=== PATIENT | female | born 1950 | race Caucasian/White ===

== ENCOUNTER → 2022-05-31 09:05 | Outpatient (CLI) | payer OTHER, SELFPAY | PROVIDERS: PCP Physician Assistant; Referring Provider Surgery; Visit Provider Surgery | DX: R10.9 Unspecified abdominal pain (principal) ==

== ENCOUNTER → 2022-06-15 11:08 | Outpatient (CLI) | payer OTHER, SELFPAY ==
--- NOTE | 2022-06-15 11:09 | DI.US.S_ITS ---
PROCEDURE: US ABDOMEN COMPLETE INDICATIONS: Gallstones TECHNIQUE: Real-time scanning was performed of the abdominal and retroperitoneal organs, with image documentation. COMPARISON: None. FINDINGS: Liver: Liver is normal in size and homogeneous in echotexture. Multiple benign-appearing anechoic cysts are seen, the largest cyst located in the right hepatic lobe measures 4.2 x 4.7 x 4 cm. Gallbladder: Multiple small echogenic shadowing stones are seen in the dependent portion of the gallbladder. No gallbladder wall thickening or pericholecystic fluid. Sonographic Gloria sign is negative. Biliary ducts: Intrahepatic bile ducts are non-dilated. Extrahepatic bile duct caliber measures 5.5 mm. Normal is 6-7 mm or less in diameter, or 10 mm or less post-cholecystectomy. Pancreas: Visualized portions of the pancreas are sonographically normal. Spleen: Spleen is normal in size and homogeneous in echotexture. Kidneys: Kidneys are normal in size and echotexture. Right kidney measures 9.2 cm long; left kidney measures 9.8 cm long. No hydronephrosis or nephrolithiasis. No solid masses. Cortical thinning is seen at the superior pole of the right kidney that is most likely chronic scarring related to a prior insult. Aorta: Visualized aorta is normal in caliber at less than 3 cm. Iliacs: Proximal common iliac arteries are normal in caliber at less than 2.5 cm. IVC: Intrahepatic inferior vena cava is patent. Miscellaneous: No free abdominal fluid. IMPRESSION: 1. Cholelithiasis without signs of acute cholecystitis. 2. Multiple benign-appearing up attic cysts. 3. Chronic right renal cortical scarring. No hydronephrosis. Approved by: Cortez Irvin M.D. on 06/15/2022 at 12:02
== END ==
PROVIDERS: PCP Physician Assistant; Referring Provider Surgery; Visit Provider Surgery
DX: K21.9 Gastro-esophageal reflux disease without esophagitis (principal); K76.89 Other specified diseases of liver
CPT/HCPCS: 76700

== ENCOUNTER → 2022-06-22 10:52 | Outpatient (CLI) | payer OTHER, SELFPAY ==
[2022-06-22 12:44] LABS: COVID19 -Nasal RAPID Negative (Negative)
== END ==
PROVIDERS: PCP Physician Assistant; Visit Provider Surgery
DX: Z01.812 Encounter for preprocedural laboratory examination (principal); Z20.822 Contact with and (suspected) exposure to COVID-19
CPT/HCPCS: 87635; C9803

== ENCOUNTER 2022-06-23 12:39 | Day surgery (SDC) | payer OTHER, SELFPAY ==
--- NOTE | 2022-06-23 | PATH_ITS ---
[facility] Accession Number: [id number] . 01 Material submitted: . PART A: duodenum - DUODENUM BIOPSY PART B: gastrointestinal site - ANTRUM BIOPSY PART C: gastrointestinal site - GASTRIC ULCER BIOPSY . 01 Diagnosis: A. Duodenum, Biopsy: Small bowel mucosa with no diagnostic abnormality. Negative for active inflammation, dysplasia, and malignancy. . B. Antrum, Biopsy: Portions of gastric antral mucosa with mild chronic inflammation. Negative for Helicobacter organisms by immunohistochemistry. Negative for intestinal metaplasia. Negative for dysplasia or malignancy. Scant fragments of small bowel mucosa with no significant histomorphologic abnormality. . C. Gastric Ulcer Biopsy: Portions of gastric antral mucosa with chronic active gastritis and detached fragments of ulcer bed. Negative for Helicobacter organisms by immunohistochemistry. Negative for intestinal metaplasia. Negative for dysplasia or malignancy. [facility] 07/04/2022 0922 Local . 01 Electronically signed: . Maria C Rueda MD, Pathologist NPI- [id number] . 01 Gross description: . Part A: DUODENUM BIOPSY: Received in formalin is 1 fragment(s) of torres, soft tissue measuring 0.3 x 0.3 x 0.3 cm submitted entirely in 1 cassette(s) Part B: ANTRUM BIOPSY: Received in formalin are 4 fragment(s) of torres, soft tissue measuring 0.1 x 0.1 x 0.1 cm to 0.3 x 0.3 x 0.2 cm submitted entirely in 1 cassette(s) Part C: GASTRIC ULCER BIOPSY: Received in formalin are 2 fragment(s) of torres, soft tissue measuring 0.1 x 0.1 x 0.1 cm to 0.2 x 0.2 x 0.2 cm submitted entirely in 1 cassette(s) /YOEL 06/27/2022 2232 Local . 01 Microscopic: . B. An immunohistochemical stain was performed to evaluate for Helicobacter organisms and is negative. The control stain showed appropriate reactivity. . C. An immunohistochemical stain was performed to evaluate for Helicobacter organisms and is negative. The control stain showed appropriate reactivity. . * This test was developed and its performance characteristics determined by [facility]. It has not been cleared or approved by the U.S. Food and Drug Administration. The FDA has determined that such clearance or approval is not necessary. This test is used for clinical purposes. It should not be regarded as investigational or for research. . 01 Pathologist provided ICD-10: K29.70, R10.0 . 01 CPT . F04935, K67592, V89978, N03332 Specimen Comment: A courtesy copy of this report has been sent to [phone] Performed at: 01 [facility] [address] [place] [address], [place], [place] [id number] MD Wes Nguyen MD Phone: [phone]
[2022-06-23 13:19] VITALS: BP 145/76; PULSE 72; RESP 14; TEMP 36.6; O2SAT 99; BMI 23.6
[2022-06-23] MEDS: LACTATED RINGERS 1,000 ML 84 ML IV (13:32)
--- NOTE | 2022-06-23 14:06 | PM.HP.1 ---
History of Present Illness History of Present Illness Date Patient Seen: 06/23/22 Time Patient Seen: 14:06 Chief complaint: EGD Narrative: Darian is for her EGD. Please see the recent office note for details. She did have her ultrasound recently which did show gallstones but no cholecystitis. 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 Hyperlipemia Hypothyroid Insomnia MDD (major depressive disorder) Morphea scleroderma Osteopenia Venous insufficiency Surgical History (Updated 05/18/22 @ 11:00 by Liu Reece RN) S/P lumbar laminectomy Family & Social History Family History (Updated 05/18/22 @ 13:43 by Liu Reece RN) Mother Hypertension Stroke Social History: household members none lives independently Yes Tobacco & Substance use: Smoking Status Former smoker alcohol intake current alcohol intake frequency 0-2 drinks per day Substance Use Type does not use Meds Home Medications and Allergies Home Medications Medication Instructions Recorded Confirmed Type acetaminophen 500 mg capsule 500 mg PO BID 05/18/22 06/23/22 History buspirone 30 mg tablet 30 mg PO BID 05/18/22 06/23/22 History d-mannose 500 mg capsule mg PO 05/18/22 05/18/22 History duloxetine 60 mg capsule,delayed 60 mg PO BID 05/18/22 05/18/22 History release famotidine 20 mg tablet 20 mg PO BID 05/18/22 06/23/22 History gabapentin 100 mg capsule 100 mg PO TID 05/18/22 06/23/22 History levothyroxine 75 mcg capsule 75 mcg PO DAILY 05/18/22 06/23/22 History liothyronine 5 mcg tablet 5 mcg PO DAILY 05/18/22 06/23/22 History losartan 50 mg tablet 50 mg PO DAILY 05/18/22 06/23/22 History magnesium citrate 100 mg capsule 100 mg PO DAILY 05/18/22 06/23/22 History mecobalamin (vitamin B12) 1,000 1,000 mcg PO DAILY 05/18/22 06/23/22 History mcg chewable tablet meloxicam 15 mg tablet 15 mg PO DAILY 05/18/22 06/23/22 History omeprazole 20 mg capsule,delayed 20 mg PO DAILY 05/18/22 06/23/22 History release potassium 99 mg tablet 99 mg PO DAILY 05/18/22 06/23/22 History propranolol 10 mg tablet 10 mg PO BID 05/18/22 06/23/22 History tiotropium bromide 2.5 2 puff inhalation DAILY 05/18/22 06/23/22 History mcg/actuation mist for inhalation trazodone 50 mg tablet 50 mg PO BEDTIME PRN Sleep 05/18/22 06/23/22 History Allergies Allergy/AdvReac Type Severity Reaction Status Date / Time Penicillins Allergy Verified 06/23/22 13:33 tetracycline Allergy Verified 06/23/22 13:33 melatonin AdvReac Verified 06/23/22 13:33 prochlorperazine AdvReac Verified 06/23/22 13:33 [From Compazine] sorbitol AdvReac Verified 06/23/22 13:33 xylitol AdvReac Verified 06/23/22 13:33 Exam Vital Signs (past 8 hours): - 06/23/22 13:19 Temperature 98 F Pulse Rate 72 Respiratory Rate 14 Blood Pressure 145/76 H Pulse Oximetry 99 Oxygen Delivery Method Room Air Oxygen Delivery Method Room Air Const General: healthy appearing Assessment & Plan Assessment and plan (1) Gastroesophageal reflux disease without esophagitis: Status: Acute Plan We reviewed the risks and benefits of EGD and like to proceed Time Spent With Patient Critical Care time: I spent a total of [] minutes of critical care time on this patient's care today; this time is exclusive of procedural time.
--- NOTE | 2022-06-23 14:25 | PM.OP.EGD ---
Operative Date/Time/Diagnoses Date of procedure: 06/23/22 Time of procedure: 14:27 Pre-op diagnosis: Dyspepsia Post-op diagnosis: same Procedure & Clinicians Study performed: Esophagogastroduodenoscopy Same procedure as scheduled: Yes Surgeon: Porter Nascimento Procedure Notes Procedure in detail: Surgeon: Porter Nascimento MD Anesthesia: Dr. Prabhakar A timeout was performed. A bite blocked was placed. The patient was positioned in the left lateral decubitus position. Anesthesia was administered. The endoscope was inserted through the bite block and passed through the esophagus and stomach and into the duodenum. The duodenal mucosa appeared normal. Random biopsies were taken to rule out celiac disease. The scope was withdrawn into the duodenal bulb and no abnormalities were seen. The scope was withdrawn into the stomach. There was some mild antritis and there was a moderately-sized antral ulcer which was not bleeding. There was also evidence of recently healed ulcers in the antrum. The rest of the stomach was normal. The scope was retroflexed and no abnormalities were noted. The scope was withdrawn into the esophagus and no abnormalities were noted. The scope was withdrawn. The patient was awakened and brought to recovery. Sedation time: 10 minutes Findings: Mild antritis and an antral ulcer Post-procedure Recommendations: Will call with biopsy results Disposition: PACU
[2022-06-23 14:27] VITALS: BP 123/66; PULSE 69; TEMP 36.4; O2SAT 98
[2022-06-23 14:32] VITALS: BP 126/74; PULSE 71; RESP 17; O2SAT 99
[2022-06-23 14:37] VITALS: BP 117/49; PULSE 79; RESP 23; O2SAT 96
[2022-06-23 14:42] VITALS: BP 112/54; PULSE 67; RESP 16; O2SAT 100
[2022-06-23 14:47] VITALS: BP 134/64; PULSE 72; RESP 18; TEMP 36; O2SAT 99
== END 2022-06-23 15:15 | disposition home or self-care (01) ==
PROVIDERS: PCP Physician Assistant; Referring Provider Surgery; Visit Provider Surgery
PROC: 0DJ08ZZ Inspection of Upper Intestinal Tract, Via Natural or Artificial Opening Endoscopic (ICD-10-PCS; CPT 43235; principal; 2022-06-23 13:45)
DX: K29.50 Unspecified chronic gastritis without bleeding (principal); N18.9 Chronic kidney disease, unspecified; F41.9 Anxiety disorder, unspecified; E06.3 Autoimmune thyroiditis; K25.9 Gastric ulcer, unspecified as acute or chronic, without hemorrhage or perforation
CPT/HCPCS: 43239; J2704; J3010

== ENCOUNTER 2024-06-19 13:16 | Emergency (ER) | payer OTHER, SELFPAY ==
[2024-06-19 13:54] VITALS: BP 139/90; PULSE 83; RESP 17; TEMP 36.6; O2SAT 98; BMI 23.8
--- NOTE | 2024-06-19 16:14 | PC.NURSE ---
Pt reports hx of thoracic surgery with removal of a tumor. Reports this pain feels similar. Provider Arely made aware.
--- NOTE | 2024-06-19 16:15 | ED_ITS ---
HPI - Back Pain/Injury <Arely Morton PA-C - Last Filed: 06/19/24 20:45> General Chief Complaint: Back Pain/Injury Stated Complaint: pain in back getting worse Time Seen by Provider: 06/19/24 16:15 Source: patient History of Present Illness HPI Narrative: Ms. Coles is a very pleasant 73-year-old female with a past medical history of breast cancer s/p mastectomy with left rectus abdominis reconstruction, Mark Anthony's thyroiditis, essential tremor, anxiety, depression, hypertension, who presents to the emergency department for left flank pain x 6 days. Patient reports on Monday she woke up with pain on the left side/flank. She denies any inciting injury. States the pain feels similar to when she had a benign thoracic tumor (that was removed many years ago). Pain is worsened by movement. It is constant. She denies chest pain, shortness of breath, cough, fevers, chills, abdominal pain, nausea, vomiting, dysuria, hematuria. Related Data Home Medications Medication Instructions Recorded Confirmed acetaminophen 500 mg capsule 500 mg PO BID 05/18/22 07/06/22 buspirone 30 mg tablet 30 mg PO BID 05/18/22 07/06/22 d-mannose 500 mg capsule mg PO 05/18/22 07/06/22 duloxetine 60 mg capsule,delayed 60 mg PO BID 05/18/22 07/06/22 release famotidine 20 mg tablet 20 mg PO BID 05/18/22 07/06/22 gabapentin 100 mg capsule 100 mg PO TID 05/18/22 07/06/22 levothyroxine 75 mcg capsule 75 mcg PO DAILY 05/18/22 07/06/22 liothyronine 5 mcg tablet 5 mcg PO DAILY 05/18/22 07/06/22 losartan 50 mg tablet 50 mg PO DAILY 05/18/22 07/06/22 magnesium citrate 100 mg capsule 100 mg PO DAILY 05/18/22 07/06/22 mecobalamin (vitamin B12) 1,000 1,000 mcg PO DAILY 05/18/22 07/06/22 mcg chewable tablet meloxicam 15 mg tablet 15 mg PO DAILY 05/18/22 07/06/22 omeprazole 20 mg capsule,delayed 20 mg PO DAILY 05/18/22 07/06/22 release potassium 99 mg tablet 99 mg PO DAILY 05/18/22 07/06/22 propranolol 10 mg tablet 10 mg PO BID 05/18/22 07/06/22 tiotropium bromide 2.5 2 puff inhalation DAILY 05/18/22 07/06/22 mcg/actuation mist for inhalation trazodone 50 mg tablet 50 mg PO BEDTIME PRN Sleep 05/18/22 07/06/22 Allergies Allergy/AdvReac Type Severity Reaction Status Date / Time Penicillins Allergy Verified 06/19/24 13:57 tetracycline Allergy Verified 06/19/24 13:57 melatonin AdvReac Verified 06/19/24 13:57 prochlorperazine AdvReac Verified 06/19/24 13:57 [From Compazine] sorbitol AdvReac Verified 06/19/24 13:57 xylitol AdvReac Verified 06/19/24 13:57 Review of Systems <Arely Morton PA-C - Last Filed: 06/19/24 20:45> Review of Systems ROS Unobtainable: All systems reviewed & are unremarkable except as noted in HPI and below Patient History <Arely Morton PA-C - Last Filed: 06/19/24 20:45> Medical History Venous insufficiency Chronic kidney disease (CKD) Insomnia Osteopenia Morphea scleroderma MDD (major depressive disorder) Hypothyroid Hyperlipemia History of benign pleural tumor Mark Anthony's disease Generalized anxiety disorder Surgical History S/P lumbar laminectomy Family History Mother Hypertension Stroke Social History number of children: 1 household members: none lives independently: Yes pets and animals: Yes Smoking Status: Former smoker alcohol intake: current Smoking Status: Former smoker alcohol intake frequency: 0-2 drinks per day Substance Use Type: does not use Exam <Arely Morton PA-C - Last Filed: 06/19/24 20:45> Narrative Exam Narrative: GENERAL: 73 year old patient appears stated age. Well-developed patient, in no acute distress. Mild tremor. HEAD: Atraumatic. Normocephalic. EYES: Extraocular motions intact.No injection or drainage. ENT: Nose without bleeding, purulent drainage. Airway patent. NECK: Trachea midline. CARDIOVASCULAR: Regular rate and rhythm. RESPIRATORY: Clear to auscultation. Breath sounds equal bilaterally. No wheezes, rales, or rhonchi. GASTROINTESTINAL: Abdomen soft, non-tender, nondistended. EXTREMITIES: No edema or joint tenderness. BACK: Nontender without deformity or crepitance. Negative SLR bilaterally. NEURO: AOx3. Steady gait. SKIN: Mild horizontal 10cm linear erythema on L flank above waistband of pants. Initial Vital Signs Initial Vital Signs: Vital Signs Temperature 98 F 06/19/24 13:54 Pulse Rate 83 06/19/24 13:54 Respiratory Rate 17 06/19/24 13:54 Blood Pressure 139/90 06/19/24 13:54 Pulse Oximetry 98 06/19/24 13:54 Oxygen Delivery Method Room Air 06/19/24 13:54 <Enrique Danielson DO - Last Filed: 06/19/24 21:08> Initial Vital Signs Initial Vital Signs: Vital Signs Temperature 98 F 06/19/24 13:54 Pulse Rate 83 06/19/24 13:54 Respiratory Rate 17 06/19/24 13:54 Blood Pressure 139/90 06/19/24 13:54 Pulse Oximetry 98 06/19/24 13:54 Oxygen Delivery Method Room Air 06/19/24 13:54 Course <Arely Morton PA-C - Last Filed: 06/19/24 20:45> Orders Ordered: ED Orders 06/19/24 16:34 CT chest abd pel w con Stat 06/19/24 16:50 CBC Auto Diff [Complete Blood Count AUTO DIFF] Stat CMP [Comprehensive Metabolic Panel] Stat Lipase Stat 06/19/24 17:41 Urine Microscopic Stat Discontinued Medications Acetaminophen (Acetaminophen 325 Mg Tablet) 975 mg PO NOW ONE Stop: 06/19/24 16:35 Last Admin: 06/19/24 16:57 Dose: 975 mg Documented By: RAUL Hydrocodone Bitart/Acetaminophen (Hydrocodone/Acet 5/325 Prepack) 1 bottle MISC DIRECTED ONE Stop: 06/19/24 20:31 Last Admin: 06/19/24 20:47 Dose: 1 bottle Documented By: KLAUS Ibuprofen (Ibuprofen 400 Mg Tablet) 400 mg PO NOW ONE Stop: 06/19/24 20:31 Last Admin: 06/19/24 20:48 Dose: 400 mg Documented By: KLAUS Vital Signs Vital signs: Vital Signs - 8 hr 06/19/24 13:54 06/19/24 20:12 06/19/24 20:51 Temperature 98 F Pulse Rate 83 74 71 Respiratory Rate 17 20 16 Blood Pressure 139/90 173/83 H 169/88 H Pulse Oximetry 98 99 99 Oxygen Delivery Method Room Air Room Air Room Air <Enrique Danielson DO - Last Filed: 06/19/24 21:08> Orders Ordered: ED Orders 06/19/24 16:34 CT chest abd pel w con Stat 06/19/24 16:50 CBC Auto Diff [Complete Blood Count AUTO DIFF] Stat CMP [Comprehensive Metabolic Panel] Stat Lipase Stat 06/19/24 17:41 Urine Microscopic Stat Discontinued Medications Acetaminophen (Acetaminophen 325 Mg Tablet) 975 mg PO NOW ONE Stop: 06/19/24 16:35 Last Admin: 06/19/24 16:57 Dose: 975 mg Documented By: RAUL Hydrocodone Bitart/Acetaminophen (Hydrocodone/Acet 5/325 Prepack) 1 bottle MISC DIRECTED ONE Stop: 06/19/24 20:31 Last Admin: 06/19/24 20:47 Dose: 1 bottle Documented By: KLAUS Ibuprofen (Ibuprofen 400 Mg Tablet) 400 mg PO NOW ONE Stop: 06/19/24 20:31 Last Admin: 06/19/24 20:48 Dose: 400 mg Documented By: KLAUS Vital Signs Vital signs: Vital Signs - 8 hr 06/19/24 13:54 06/19/24 20:12 06/19/24 20:51 Temperature 98 F Pulse Rate 83 74 71 Respiratory Rate 17 20 16 Blood Pressure 139/90 173/83 H 169/88 H Pulse Oximetry 98 99 99 Oxygen Delivery Method Room Air Room Air Room Air MDM - Back Pain/Injury <Arely Morton PA-C - Last Filed: 06/19/24 20:45> Lab Data 06/19/24 16:50 06/19/24 16:50 Labs: Lab Results 06/19/24 06/19/24 Range/Units 16:50 17:41 WBC 6.8 (4.5-11.0) X10^3/uL RBC 4.16 (4.0-5.2) X10^6/uL Hgb 12.9 (12.0-16.0) g/dL Hct 37.7 (36-46) % MCV 90.8 (80-100) fL MCH 31.1 (26-34) PG MCHC 34.2 (30-36) % RDW 12.8 (11.6-14.8) % Plt Count 324 (150-400) X10^3/uL Neut % (Auto) 68.6 (50-75) % Lymph % (Auto) 23.6 L (25-40) % [place] % (Auto) 6.6 (3-14) % Eos % (Auto) 0.7 L (2-4) % Baso % (Auto) 0.5 (0-2) % Neut # (Auto) 4700 (8743-6138) /uL Lymph # (Auto) 1600 (6920-8202) /uL [place] # (Auto) 500 (0-900) /uL Eos # (Auto) 0 (0-450) /uL Baso # (Auto) 0 (0-100) /uL Sodium 135 L (137-145) mmol/L Potassium 4.1 (3.4-5.1) mmol/L Chloride 101 (98-107) mmol/L Carbon Dioxide 27 (22-32) mmol/L BUN 14 (7-17) mg/dL Creatinine 0.87 (0.52-1.04) mg/dL Estimated GFR > 60 (>60) mL/min BUN/Creatinine Ratio 16.1 (6-22) Glucose 92 (80-110) mg/dL Calcium 9.9 (8.4-10.2) mg/dL Total Bilirubin 0.9 (0.2-1.3) mg/dL AST 30 (14-36) IU/L ALT 17 (<35) IU/L Alkaline Phosphatase 74 (38-126) U/L Total Protein 7.6 (6.3-8.2) g/dL Albumin 4.7 (3.5-5.0) g/dL Globulin 2.9 (1.7-4.1) g/dL Albumin/Globulin Ratio 1.6 (1.0-2.8) Lipase 193 (23-300) U/L Urine RBC None seen (0-5/HPF) Urine WBC 1-5/hpf (0-5/HPF) Ur Squamous Epith Cells None seen (0-5/HPF) Urine Bacteria Occasional (0-1) (None) Ur Culture Indicated? Cult not indicated Vol Urine Centrifuged 10ml (spun) Urine Dip Bedside Urine Glucose Negative Bedside Urine Bilirubin - Negative Bedside Urine Ketone +/- 5 Urine Specific [place] 1.005 Bedside Urine Occult Blood - Negative Bedside Urine pH 6.5 Bedside Urine Protein - Negative Bedside Urine Urobilinogen - Negative Bedside Urine Nitrite - Negative Bedside Urine Leukocytes +/- [address] chest / abd / pelvis: Radiologist's Impression: FINDINGS: Image quality: Excellent. CHEST: Lungs and Pleura: Central and peripheral airways are normal without bronchial wall thickening or bronchiectasis. Mild emphysematous changes, predominantly centrilobular in the upper lobes. No ground-glass opacities, consolidations, or suspicious nodules. No pleural effusions. Left posterior pleural calcification. Surgical changes of left lower lobectomy. Lower Neck: No enlarged lymph nodes. Thyroid: Normal CT appearance. Axillae: No enlarged lymph nodes. Chest Wall: Status post right mastectomy. Surgical changes along the left anterior chest wall with fat stranding in the overlying breast tissue. Most likely due to mastectomy and reconstruction. Bones: Remote, healed left-sided rib fractures, probably postsurgical. No suspicious lesions in the thoracic spine. Heart: Heart size is normal. No pericardial effusion. Thoracic Vessels: The aorta and pulmonary arteries demonstrate normal size. Mediastinum and Dilma: No enlarged lymph nodes. Esophagus: No wall thickening. No hiatal hernia. ABDOMEN: Liver: Several cysts of varying sizes in the liver, one of the largest at the dome measures 5 cm. No solid mass. Gallbladder: Distended gallbladder without wall thickening or pericholecystic inflammation. No calcified stones seen. Biliary ducts: No biliary dilation. Pancreas: Mildly dilated proximal pancreatic duct. No suspicious pancreatic mass or peripancreatic inflammation. Spleen: Size is within normal limits. Adrenal Glands: No adrenal nodules. Kidneys and Ureters: Right upper pole cortical scarring or postsurgical change. Symmetric enhancement. No nephrolithiasis or hydronephrosis. Normal ureters. Stomach and Bowel: Increased quantity of solid stool in the colon. Stomach and small bowel loops are normal caliber. Peritoneum: No abnormal intraperitoneal fluid. No free air. Ventral Wall: Scattered surgical changes of probable tram flap. Abdominal Nodes: No retroperitoneal or mesenteric adenopathy by size criteria. Vessels: The abdominal aorta, IVC, and portal vein are of normal caliber. PELVIS: Pelvic Organs: Anteverted uterus. Solid left ovarian mass within the left ovary measuring 2.6 cm. Right ovary appears normal. Bladder: No stones or wall thickening. Pelvic Nodes: No enlarged lymph nodes. Miscellaneous: No inguinal hernias are seen. Bones: Prominent degenerative changes in the lumbar spine and moderate levoscoliosis. No suspicious bone lesions or fractures. IMPRESSION: No acute process in the chest. Mild obstipation in the colon. Solid left ovarian mass, uncertain etiology. There is no ascites or associated inflammation. Recommend pelvic MRI with contrast as an outpatient for further evaluation. Lumbar spine degeneration and scoliosis. [facility] Narrative Medical decision making narrative: 73 year old female presents to the emergency department for left side/flank pain x6 days. Differential diagnosis includes but is not limited to muscle strain, muscle spasm, pyelonephritis, nephrolithiasis, ureterolithiasis, mass, shingles, renal colic, etc. On physical exam patient is in no acute distress, nontoxic appearing, vital signs within normal limits. She has subjective pain on her left side that is worse with movement but not reproducible by palpation. She is very minimal erythema overlying this area. Due to her extensive history of abdominal surgeries and similar pain in the past with thoracic mass, we will proceed with a CT chest abdomen pelvis and CBC and CMP. We will obtain urinalysis. Urinalysis negative. Labs reveal normal WBC count 6.8, normal hemoglobin and hematocrit 12.9, 37.7. Normal renal function. Lipase normal 193. CT chest abdomen and pelvis reveals a 2.6 cm left ovarian mass in addition to mild obstipation in the colon. She also has lumbar spine degeneration and scoliosis. On repeat examination of patient, erythematous kamron on her left flank did resolve. CT result was printed and entire report was discussed with patient including all incidental findings such as hepatic cysts. Patient is aware that she needs to have a follow-up MRI of her pelvis for further evaluation of ovarian mass. This mass is on the side of the patient's pain however she also has pain with movement suspicious for musculoskeletal pain as well. Recommended alternating ibuprofen and Tylenol as patient did have slight improvement of pain with Tylenol in the ED. she was prescribed for doses of hydrocodone-acetaminophen if needed for severe breakthrough pain. Patient was advised to follow up with her primary care doctor as soon as possible for further evaluation and pelvis MRI. We discussed strict ED return precautions and she understands to return for any new, worsening or persistent symptoms. Patient is agreeable to plan and stable for discharge home. <Enrique Danielson, DO - Last Filed: 06/19/24 21:08> Lab Data Labs: Lab Results 06/19/24 06/19/24 Range/Units 16:50 17:41 WBC 6.8 (4.5-11.0) X10^3/uL RBC 4.16 (4.0-5.2) X10^6/uL Hgb 12.9 (12.0-16.0) g/dL Hct 37.7 (36-46) % MCV 90.8 (80-100) fL MCH 31.1 (26-34) PG MCHC 34.2 (30-36) % RDW 12.8 (11.6-14.8) % Plt Count 324 (150-400) X10^3/uL Neut % (Auto) 68.6 (50-75) % Lymph % (Auto) 23.6 L (25-40) % [place] % (Auto) 6.6 (3-14) % Eos % (Auto) 0.7 L (2-4) % Baso % (Auto) 0.5 (0-2) % Neut # (Auto) 4700 (1927-5676) /uL Lymph # (Auto) 1600 (2073-4374) /uL [place] # (Auto) 500 (0-900) /uL Eos # (Auto) 0 (0-450) /uL Baso # (Auto) 0 (0-100) /uL Sodium 135 L (137-145) mmol/L Potassium 4.1 (3.4-5.1) mmol/L Chloride 101 (98-107) mmol/L Carbon Dioxide 27 (22-32) mmol/L BUN 14 (7-17) mg/dL Creatinine 0.87 (0.52-1.04) mg/dL Estimated GFR > 60 (>60) mL/min BUN/Creatinine Ratio 16.1 (6-22) Glucose 92 (80-110) mg/dL Calcium 9.9 (8.4-10.2) mg/dL Total Bilirubin 0.9 (0.2-1.3) mg/dL AST 30 (14-36) IU/L ALT 17 (<35) IU/L Alkaline Phosphatase 74 (38-126) U/L Total Protein 7.6 (6.3-8.2) g/dL Albumin 4.7 (3.5-5.0) g/dL Globulin 2.9 (1.7-4.1) g/dL Albumin/Globulin Ratio 1.6 (1.0-2.8) Lipase 193 (23-300) U/L Urine RBC None seen (0-5/HPF) Urine WBC 1-5/hpf (0-5/HPF) Ur Squamous Epith Cells None seen (0-5/HPF) Urine Bacteria Occasional (0-1) (None) Ur Culture Indicated? Cult not indicated Vol Urine Centrifuged 10ml (spun) Urine Dip Bedside Urine Glucose Negative Bedside Urine Bilirubin - Negative Bedside Urine Ketone +/- 5 Urine Specific [place] 1.005 Bedside Urine Occult Blood - Negative Bedside Urine pH 6.5 Bedside Urine Protein - Negative Bedside Urine Urobilinogen - Negative Bedside Urine Nitrite - Negative Bedside Urine Leukocytes +/- 15 Esterase Discharge Plan Departure Patient Disposition: Home Clinical Impression: Acute left flank pain, Ovarian mass, left Instructions: DI for Back Spasm Activity Restrictions/Additional Instructions: Please take 400mg of ibuprofen every 6-8 hours alternating with 650mg of tylenol every 6-8 hours as needed for pain. You may take the prescribed hydrocodone- acetaminophen 5mg-325mg every 6-8 hours if needed for severe breakthrough pain. Please call your primary care doctor first thing in the morning to schedule a follow up appointment and to order a pelvic MRI for further evaluation. Return to the emergency department if you develop any chest pain, shortness of breath, fevers, chills, rash, new or worsening left flank pain. You have been prescribed a short course of narcotic medications. These are potentially dangerous and addictive medications that should be used carefully. While on these medications you cannot drive or operate heavy machinery. Additionally, you cannot sign legal documents or perform any duties such as this. 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 Please understand that we cannot provide further refills of narcotics or controlled substances through the ED and your pain management will need to be through your Primary Care Provider Prescriptions: No Action famotidine 20 mg tablet 20 mg PO BID losartan 50 mg tablet 50 mg PO DAILY trazodone 50 mg tablet 50 mg PO BEDTIME PRN (Reason: Sleep) magnesium citrate 100 mg capsule 100 mg PO DAILY mecobalamin (vitamin B12) 1,000 mcg tablet,chewable 1,000 mcg PO DAILY potassium 99 mg tablet 99 mg PO DAILY d-mannose 500 mg capsule PO duloxetine 60 mg capsule,delayed release(DR/EC) 60 mg PO BID buspirone 30 mg tablet 30 mg PO BID gabapentin 100 mg capsule 100 mg PO TID acetaminophen 500 mg capsule 500 mg PO BID levothyroxine 75 mcg capsule 75 mcg PO DAILY tiotropium bromide 2.5 mcg/actuation mist 2 puff inhalation DAILY liothyronine 5 mcg tablet 5 mcg PO DAILY propranolol 10 mg tablet 10 mg PO BID meloxicam 15 mg tablet 15 mg PO DAILY omeprazole 20 mg capsule,delayed release(DR/EC) 20 mg PO DAILY Referrals: Henry Uriarte, PAOttonielC [Primary Care Provider] - Stand Alone Forms: Patient Portal/API/Survey ED Sign-out <Enrique Danielson DO - Last Filed: 06/19/24 21:08> Cosign ED Attending Cosignature Attestation: Dr Danielson Co-Sign Statement: I was available for consultation during this patient's emergency department visit. This chart is signed by myself for administrative purposes only. I did not have direct contact with this patient during this visit. They were seen independently by the APC.
--- NOTE | 2024-06-19 16:34 | DI.CT.S_ITS ---
PROCEDURE: CT CHEST ABD PEL W CON INDICATIONS: left flank pain ; hx various reconstructive surgeries TECHNIQUE: After the administration of intravenous contrast, 5 mm thick sections acquired from the lung apices to the symphysis. 5 mm coronal and sagittal reformats were performed, with additional 7 mm MIP reformats through the lungs. For radiation dose reduction, the following was used: automated exposure control, adjustment of mA and/or kV according to patient size. COMPARISON: None. FINDINGS: Image quality: Excellent. CHEST: Lungs and Pleura: Central and peripheral airways are normal without bronchial wall thickening or bronchiectasis. Mild emphysematous changes, predominantly centrilobular in the upper lobes. No ground-glass opacities, consolidations, or suspicious nodules. No pleural effusions. Left posterior pleural calcification. Surgical changes of left lower lobectomy. Lower Neck: No enlarged lymph nodes. Thyroid: Normal CT appearance. Axillae: No enlarged lymph nodes. Chest Wall: Status post right mastectomy. Surgical changes along the left anterior chest wall with fat stranding in the overlying breast tissue. Most likely due to mastectomy and reconstruction. Bones: Remote, healed left-sided rib fractures, probably postsurgical. No suspicious lesions in the thoracic spine. Heart: Heart size is normal. No pericardial effusion. Thoracic Vessels: The aorta and pulmonary arteries demonstrate normal size. Mediastinum and Dilma: No enlarged lymph nodes. Esophagus: No wall thickening. No hiatal hernia. ABDOMEN: Liver: Several cysts of varying sizes in the liver, one of the largest at the dome measures 5 cm. No solid mass. Gallbladder: Distended gallbladder without wall thickening or pericholecystic inflammation. No calcified stones seen. Biliary ducts: No biliary dilation. Pancreas: Mildly dilated proximal pancreatic duct. No suspicious pancreatic mass or peripancreatic inflammation. Spleen: Size is within normal limits. Adrenal Glands: No adrenal nodules. Kidneys and Ureters: Right upper pole cortical scarring or postsurgical change. Symmetric enhancement. No nephrolithiasis or hydronephrosis. Normal ureters. Stomach and Bowel: Increased quantity of solid stool in the colon. Stomach and small bowel loops are normal caliber. Peritoneum: No abnormal intraperitoneal fluid. No free air. Ventral Wall: Scattered surgical changes of probable tram flap. Abdominal Nodes: No retroperitoneal or mesenteric adenopathy by size criteria. Vessels: The abdominal aorta, IVC, and portal vein are of normal caliber. PELVIS: Pelvic Organs: Anteverted uterus. Solid left ovarian mass within the left ovary measuring 2.6 cm. Right ovary appears normal. Bladder: No stones or wall thickening. Pelvic Nodes: No enlarged lymph nodes. Miscellaneous: No inguinal hernias are seen. Bones: Prominent degenerative changes in the lumbar spine and moderate levoscoliosis. No suspicious bone lesions or fractures. IMPRESSION: No acute process in the chest. Mild obstipation in the colon. Solid left ovarian mass, uncertain etiology. There is no ascites or associated inflammation. Recommend pelvic MRI with contrast as an outpatient for further evaluation. Lumbar spine degeneration and scoliosis. Dictated by: Brianda Del Castillo M.D. on 06/19/2024 at 19:32 Approved by: Brianda Del Castillo M.D. on 06/19/2024 at 19:43
[2024-06-19] MEDS: ACETAMINOPHEN 325 MG TABLET 975 MG PO (16:57)
[2024-06-19 17:03] LABS: Add Manual Diff / Slide Review NO; Basophils Absolute Auto 0 /uL (0-100); Basophils Percent Auto 0.5 % (0-2); Eosinophils Absolute Auto 0 /uL (0-450); Eosinophils Percent Auto 0.7 % (2-4); Hematocrit 37.7 % (36-46); Hemoglobin 12.9 g/dL (12.0-16.0); Lymphocytes Absolute Auto 1600 /uL (1100-4500); Lymphocytes Percent Auto 23.6 % (25-40); Mean Corpuscular HGB Conc 34.2 % (30-36); Mean Corpuscular Hemoglobin 31.1 PG (26-34); Mean Corpuscular Volume 90.8 fL (80-100); Monocytes Absolute Auto 500 /uL (0-900); Monocytes Percent Auto 6.6 % (3-14); Neutrophils Absolute Auto 4700 /uL (1500-7000); Neutrophils Percent Auto 68.6 % (50-75); Platelet Count 324 X10^3/uL (150-400); Red Blood Cell Count 4.16 X10^6/uL (4.0-5.2); Red Cell Distribution Width 12.8 % (11.6-14.8); White Blood Cell Count 6.8 X10^3/uL (4.5-11.0)
[2024-06-19 17:24] LABS: Alanine Aminotransferase 17 IU/L (<35); Albumin 4.7 g/dL (3.5-5.0); Albumin Globulin Ratio 1.6 (1.0-2.8); Alkaline Phosphatase 74 U/L (38-126); Aspartate Aminotransferase 30 IU/L (14-36); BUN Creatinine Ratio 16.1 (6-22); Bilirubin Total 0.9 mg/dL (0.2-1.3); Blood Urea Nitrogen 14 mg/dL (7-17); Calcium 9.9 mg/dL (8.4-10.2); Carbon Dioxide 27 mmol/L (22-32); Chloride 101 mmol/L (98-107); Estimated Glomerular Filt Rate > 60 mL/min (>60); Globulin 2.9 g/dL (1.7-4.1); Glucose 92 mg/dL (80-110); HEMOLYSIS < 15 (0-50); Lipase 193 U/L (23-300); Potassium 4.1 mmol/L (3.4-5.1); Sodium 135 mmol/L (137-145); Total Protein 7.6 g/dL (6.3-8.2)
[2024-06-19 18:03] LABS: Urine Volume 10mL (spun)
[2024-06-19 18:05] LABS: Bacteria Urine Occasional (0-1); Culture Indicated Urine Cult Not Indicated; RBC Urine None Seen (0-5/HPF); Squamous Epithelial Cell Urine None Seen (0-5/HPF); WBC Urine 1-5/HPF (0-5/HPF)
[2024-06-19 20:12] VITALS: BP 173/83; PULSE 74; RESP 20; O2SAT 99
[2024-06-19] MEDS: HYDROCODONE/ACET 5/325 PREPACK 1 BOTTLE MISC (20:47)
[2024-06-19] MEDS: IBUPROFEN 400 MG TABLET PO (20:48)
[2024-06-19 20:51] VITALS: BP 169/88; PULSE 71; RESP 16; O2SAT 99
== END 2024-06-19 20:53 | disposition home or self-care (01) ==
PROVIDERS: Emergency Provider Physician Assistant; PCP Physician Assistant
DX: R10.9 Unspecified abdominal pain (principal); N83.8 Other noninflammatory disorders of ovary, fallopian tube and broad ligament
CPT/HCPCS: 36415; 71260; 74177; 80053; 81003; 81015; 83690; 85025; 99284; Q9967

== ENCOUNTER → 2024-08-20 13:54 | Outpatient (CLI) | payer OTHER, SELFPAY ==
--- NOTE | 2024-08-20 | DI.RAD.S_ITS ---
PROCEDURE: XR DEXA AXIAL SKELETON INDICATIONS: Other specified disorders of bone density and structure, oth COMPARISON: None. FINDINGS: Lumbar Spine: Bone mineral density 0.83 g/cm2, T score -1.2. Left Hip: Bone mineral density 0.567 g/cm2, T score -3.1. Left Femoral Neck: Bone mineral density 0.478 g/cm2, T score -3.3. Fracture Risk Calculation (when applicable): Not valid in osteoporotic patients. Only valid in patients with osteopenia (T score greater or equal to -1.0 to: NORMAL) (T score from -1.1 to -2.4: OSTEOPENIA) (T score less than or equal to -2.5: OSTEOPOROSIS) IMPRESSION: 1. By WHO (World Health Organization) criteria, this patient has osteoporosis 2. Fracture Risk Calculation is not utilized in patients with osteoporosis Follow-up guidelines as follows: Osteoporosis: Consider a repeat DEXA and Vertebral Fracture Assessment (VFA) exam in 2 years or sooner if medically necessary, to reassess this patient's status. Osteopenia: Consider a repeat DEXA in 2-3 years to reassess this patient's status, or if there is a new clinical indication. Normal: Consider a repeat DEXA in 5 years or sooner, or if there is a new clinical indication. All treatment decisions require clinical judgment and consideration of individual patient factors, including patient preferences, comorbidities, previous drug use, risk factors not captured in the FRAX model (e.g., frailty, falls, vitamin D deficiency, increased bone turnover, interval significant decline in bone density ) and possible under- or over-estimation of fracture risk by FRAX. In addition, the NOF Guide recommends that FDA-approved medical therapies be considered in postmenopausal women and men age >= 50 years with a: * Hip or vertebral (clinical or morphometric) fracture * T-score of <=-2.5 at the spine or hip * Ten-year fracture probability by FRAX of >= 3% for hip fracture or >=20% for major osteoporotic fracture. People with diagnosed cases of osteoporosis or at high risk for fracture should have regular bone mineral density tests. For patients eligible for Medicare, routine testing is allowed once every 2 years. The testing frequency can be increased to one year for patients who have rapidly progressing disease, those who are receiving or discontinuing medical therapy to restore bone mass, or have additional risk factors. Dictated by: Lalo Bustamante M.D. on 08/21/2024 at 22:05 Approved by: Lalo Bustamante M.D. on 08/21/2024 at 22:07
== END ==
PROVIDERS: PCP Physician Assistant; Referring Provider Physician Assistant; Visit Provider Physician Assistant
DX: M81.0 Age-related osteoporosis without current pathological fracture (principal); Z78.0 Asymptomatic menopausal state
CPT/HCPCS: 77080